=== PATIENT | male | born 1935 | race Caucasian/White ===

== ENCOUNTER 2017-04-30 15:19 | Inpatient (IN) | payer MEDICARE ==
[~2017-04-30] VITALS: Ht 177.8 cm; Wt 90.2 kg
[~2017-04-30 15:19] MED LIST: AMLO10TA2 PO; ASPI-650 PO; ATOR20TA9 PO; CLOP75TA PO; FENO160T PO; HYDR-3237 PO; LEVO175T5 PO; MULT1TAB9 PO; OMEP-110 PO; VITAMIN D PO; benicar PO; liothyronine; liothyronine PO
[2017-04-30] MEDS ORDERED: SODIUM CHLORIDE FLUSH 10ML SYR IVF ONE (16:00)
[2017-04-30 16:14] LABS: MEAN CORPUSCULAR HEMOGLOBIN 33.3 pg (27.5-34.5); PLATELET COUNT 290 x10^3/uL (130-400); RED BLOOD COUNT 5.11 x10^6/uL (4.38-5.82); RED CELL DISTRIBUTION WIDTH 12.9 % (9.4-14.8)
[2017-04-30 16:15] LABS: BASOPHILS # (AUTO) 0.04 x10^3/uL (0-0.1); BASOPHILS % (AUTO) 0 % (0-1); EOSINOPHILS # (AUTO) 0.21 x10^3/uL (0-0.4); EOSINOPHILS % (AUTO) 2 % (1-7); LYMPHOCYTES # (AUTO) 2.74 x10^3/uL (1-3.4); LYMPHOCYTES % (AUTO) 29 % (22-44); MD NO; MEAN PLATELET VOLUME 7.9 fL (7.4-10.4); MONOCYTES # (AUTO) 0.88 x10^3/uL (0.2-0.8); MONOCYTES % (AUTO) 9 % (2-9); NEUTROPHILS % (AUTO) 59 % (42-75)
[2017-04-30 16:28] LABS: ALBUMIN 3.8 g/dL (3.4-5.0); ANION GAP 6 mmol/L (5-15); CALCIUM 8.9 mg/dL (8.5-10.1); CHLORIDE 110 mmol/L (98-107); CREATININE 1.05 mg/dL (0.7-1.3)
[2017-04-30] MEDS ORDERED: NITROGLYCERIN SINGLE TAB 0.4 MG SL ONE (16:57)
[2017-04-30] MEDS ORDERED: SODIUM CHLORIDE FLUSH 10ML SYR IVF PRN (17:30)
[2017-04-30] MEDS ORDERED: ACETAMINOPHEN 325 MG TABLET PO PRN (18:00)
[2017-04-30] MEDS ORDERED: morphine SULFATE 10 MG/ML, 1ML IVPush PRN (18:00)
[2017-04-30] MEDS ORDERED: HYDROcodone/APAP 5/325 TABLET PO PRN ×2 (18:00)
[2017-04-30] MEDS ORDERED: ENOXAPARIN 40 MG/0.4 ML SQ SCH (18:00)
[2017-04-30] MEDS ORDERED: ENALAPRILAT 1.25 MG/ML, 2ML IV PRN (18:00)
[2017-04-30] MEDS ORDERED: LABETALOL 5MG/ML, 20ML IVPush PRN (18:00)
[2017-04-30] MEDS ORDERED: hydrALAzine 20 MG/ML, 1ML IV PRN (18:00)
[2017-04-30] MEDS ORDERED: ONDANSETRON 2MG/ML, 2ML IVPush PRN (18:00)
[2017-04-30] MEDS ORDERED: POLYETHYLENE GLYCOL 17 GM PACKET PO PRN (18:00)
[2017-04-30] MEDS ORDERED: DOCUSATE 100 MG CAPSULE PO PRN (18:00)
[2017-04-30 19:37] VITALS: BP 163/80
[2017-04-30] MEDS ORDERED: METOPROLOL TARTRATE 25 MG TABLET PO ONE (20:00)
[2017-04-30] MEDS ORDERED: HEPARIN 25,000 UNITS/500ML PMX 500 ML IV PRN (20:00)
[2017-04-30] MEDS ORDERED: HEPARIN 5,000 UNITS/ML, 1ML IV ONE (20:00)
[2017-04-30] MEDS ORDERED: HEPARIN 5,000 UNITS/ML, 1ML IV PRN (20:00)
[2017-04-30] MEDS ORDERED: NITROGLYCERIN 0.4 MG BOTTLE (25 TABS) SL ONE (21:23)
[2017-04-30 21:24] VITALS: BP 158/75
[2017-04-30] MEDS: NITROGLYCERIN 0.4 MG BOTTLE (25 TABS) SL PRN ×3 (21:27→21:36)
[2017-04-30 21:30] VITALS: BP 152/73
[2017-04-30] MEDS ORDERED: NITROGLYCERIN 0.4 MG/SPRAY SL PRN (21:30)
[2017-04-30 21:33] VITALS: BP 137/67
[2017-04-30 21:35] VITALS: BP 130/69
[2017-04-30 21:39] VITALS: BP 119/65
[2017-05-01] MEDS ORDERED: SODIUM CHLORIDE 0.9% 1,000 ML IV SCH (00:05)
[2017-05-01 00:13] VITALS: BP 132/76
[2017-05-01 03:23] LABS: ANION GAP 4 mmol/L (5-15); CHLORIDE 111 mmol/L (98-107)
[2017-05-01 03:29] LABS: CHOL/HDL RATIO 5.9; CHOLESTEROL, TOTAL 182 mg/dL (140-239); CREATININE 1.03 mg/dL (0.7-1.3); HDL CHOL % 17 % (26-37); HDL CHOLESTEROL (DIRECT) 31 mg/dL (40-60); LDL CHOLESTEROL,CALCULATED 108 mg/dL (54-169); LDL/HDL RATIO 3.5 (0.5-3.0); TRIGLYCERIDES 217 mg/dL (50-200); VLDL CHOLESTEROL 43 mg/dL (0-25)
[2017-05-01] MEDS ORDERED: ASPIRIN 325 MG TABLET EC PO SCH (09:00)
[2017-05-01] MEDS: SENNA/DOCUSATE TABLET PO SCH (09:00)
[2017-05-01] MEDS ORDERED: AMLODIPINE 5 MG TABLET PO SCH (09:00)
[2017-05-01 09:18] VITALS: BP 109/73
[2017-05-01] MEDS ORDERED: SODIUM CHLORIDE 0.9% 1,000 ML IV ONE (09:41)
[2017-05-01] MEDS: LEVOTHYROXINE 175 MCG TABLET PO SCH (09:55)
[2017-05-01] MEDS: ATORVASTATIN 20 MG TABLET PO SCH (09:56)
[2017-05-01] MEDS: CLOPIDOGREL 75 MG TABLET PO SCH (09:56)
[2017-05-01] MEDS: FENOFIBRATE 145 MG TABLET PO SCH (09:56)
[2017-05-01] MEDS ORDERED: bystolic (12:26)
[2017-05-01 12:32] VITALS: BP 148/71
[2017-05-01] MEDS ORDERED: FENTANYL PF 100 MCG/2ML ONE (13:17)
[2017-05-01] MEDS ORDERED: BIVALIRUDIN 250 MG ONE (13:18)
[2017-05-01] MEDS ORDERED: TICAGRELOR 90 MG TABLET ONE (13:18)
[2017-05-01] MEDS ORDERED: HEPARIN 1,000 UNITS/ML, 10ML ONE (13:18)
[2017-05-01] MEDS ORDERED: MIDAZOLAM 1 MG/ML, 2ML ONE (13:18)
[2017-05-01] MEDS ORDERED: VERAPAMIL 2.5 MG/ML, 2ML ONE (13:18)
[2017-05-01] MEDS ORDERED: LIDOCAINE 2%, 20ML ONE (13:18)
[2017-05-01 14:15] VITALS: BP 131/66
[2017-05-01] MEDS ORDERED: BIVALIRUDIN 250 MG in DEXTROSE 5% 50 ML IV SCH (14:27)
[2017-05-01] MEDS: SODIUM CHLORIDE 0.9% 1,000 ML IV SCH ×2 (14:45→22:44)
[2017-05-01 19:50] VITALS: BP 133/59
[2017-05-02 01:08] VITALS: BP 149/56
[2017-05-02 06:29] LABS: ALBUMIN 3.4 g/dL (3.4-5.0); ANION GAP 7 mmol/L (5-15); CHLORIDE 110 mmol/L (98-107); CREATININE 0.79 mg/dL (0.7-1.3)
[2017-05-02] MEDS: SODIUM CHLORIDE 0.9% 1,000 ML IV SCH (07:00)
[2017-05-02 07:41] VITALS: BP 145/69
[2017-05-02] MEDS ORDERED: CARVEDILOL 3.125 MG TABLET PO SCH (08:30)
[2017-05-02] MEDS: SENNA/DOCUSATE TABLET PO SCH (09:00)
[2017-05-02] MEDS ORDERED: AMLODIPINE 5 MG TABLET PO SCH (09:00)
[2017-05-02] MEDS ORDERED: CARV3.1212 PO (09:21)
[2017-05-02] MEDS ORDERED: AMLO5TAB2 PO (09:21)
[2017-05-02] MEDS ORDERED: ASPIRIN 81 MG TABLET CHEW ONE (10:16)
[2017-05-02] MEDS ORDERED: ASPIRIN 81 MG TABLET EC ONE (10:17)
[2017-05-02] MEDS: FENOFIBRATE 145 MG TABLET PO SCH (10:19)
[2017-05-02] MEDS: LEVOTHYROXINE 175 MCG TABLET PO SCH (10:19)
[2017-05-02] MEDS: CLOPIDOGREL 75 MG TABLET PO SCH (10:19)
[2017-05-02] MEDS: ATORVASTATIN 20 MG TABLET PO SCH (10:19)
[2017-05-02 11:38] VITALS: BP 150/83
[2017-05-03] MEDS ORDERED: ASPIRIN 81 MG TABLET EC PO SCH (06:00)
== END 2017-05-02 12:40 | disposition home or self-care (01) | DRG 246 ==
LOC: ED 17:19 → EDIP 17:20 → SUATTDRO 17:29 → ED 17:45 → 5SO 19:38 → DCLOUNGE 05-02 12:35
PROVIDERS: ADMIT Family Medicine; ATTEND Family Medicine
PROC: 027035Z Dilation of Coronary Artery, One Artery with Two Drug-eluting Intraluminal Devices, Percutaneous Approach (ICD-10-PCS; principal; 2017-05-01)
PROC: 4A023N7 Measurement of Cardiac Sampling and Pressure, Left Heart, Percutaneous Approach (ICD-10-PCS; 2017-05-01)
PROC: B2111ZZ Fluoroscopy of Multiple Coronary Arteries using Low Osmolar Contrast (ICD-10-PCS; 2017-05-01)
PROC: B2151ZZ Fluoroscopy of Left Heart using Low Osmolar Contrast (ICD-10-PCS; 2017-05-01)
DX: I21.4 Non-ST elevation (NSTEMI) myocardial infarction (principal); J96.20 Acute and chronic respiratory failure, unspecified whether with hypoxia or hypercapnia; I16.1 Hypertensive emergency; E03.9 Hypothyroidism, unspecified; K21.9 Gastro-esophageal reflux disease without esophagitis; E78.5 Hyperlipidemia, unspecified; I10 Essential (primary) hypertension; I25.10 Atherosclerotic heart disease of native coronary artery without angina pectoris; I44.30 Unspecified atrioventricular block; Z66 Do not resuscitate; Z79.82 Long term (current) use of aspirin; Z79.899 Other long term (current) drug therapy; Z82.5 Family history of asthma and other chronic lower respiratory diseases; Z87.891 Personal history of nicotine dependence; Z95.0 Presence of cardiac pacemaker; Z79.02 Long term (current) use of antithrombotics/antiplatelets
CPT/HCPCS: 36415; 71046; 80048; 80061; 82040; 84484; 85014; 85018; 85025; 85520; 93005; 93306; 93458; 96374; 99156; 99157; C1769; C1894; C9600; J0583; J1644; J2250; J3010; J3490; C1725; C1874; C1887; J7030; Q9967

== ENCOUNTER 2017-10-12 21:22 | Inpatient (IN) | payer MEDICARE ==
[~2017-10-12] VITALS: Ht 177.8 cm; Wt 77.6 kg
[~2017-10-12 21:22] MED LIST changes: +AMLO5TAB2 PO; +CARV3.1212 PO; +bystolic
[2017-10-12] MEDS ORDERED: NEBI5TAB2 PO (22:06)
[2017-10-12] MEDS ORDERED: LIOTHYRONINE PO (22:06)
[2017-10-12 22:15] LABS: BASOPHILS # (AUTO) 0.03 x10^3/uL (0-0.1); BASOPHILS % (AUTO) 0 % (0-1); EOSINOPHILS # (AUTO) 0.29 x10^3/uL (0-0.4); EOSINOPHILS % (AUTO) 3 % (1-7); LYMPHOCYTES # (AUTO) 3.23 x10^3/uL (1-3.4); LYMPHOCYTES % (AUTO) 36 % (22-44); MD NO; MEAN CORPUSCULAR HEMOGLOBIN 32.7 pg (27.5-34.5); MEAN CORPUSCULAR VOLUME 96.1 fL (81-97); MEAN PLATELET VOLUME 7.8 fL (7.4-10.4); MONOCYTES # (AUTO) 0.93 x10^3/uL (0.2-0.8); MONOCYTES % (AUTO) 10 % (2-9); NEUTROPHILS # (AUTO) 4.46 x10^3/uL (1.8-6.8); NEUTROPHILS % (AUTO) 50 % (42-75); PLATELET COUNT 298 x10^3/uL (130-400); RED BLOOD COUNT 5.02 x10^6/uL (4.38-5.82); RED CELL DISTRIBUTION WIDTH 13.1 % (9.4-14.8)
[2017-10-12 22:27] LABS: ALBUMIN 3.8 g/dL (3.4-5.0); ANION GAP 4 mmol/L (5-15); CALCIUM 9.3 mg/dL (8.5-10.1); CHLORIDE 111 mmol/L (98-107); CREATININE 1.47 mg/dL (0.7-1.3)
[2017-10-12 22:31] LABS: TROPONIN I < 0.015 ng/mL (0.000-0.045)
[2017-10-12 23:18] LABS: FREE T4 (FREE THYROXINE) 1.15 ng/dL (0.76-1.46); THYROID STIMULATING HORMONE 0.338 mIU/L (0.358-3.740)
[2017-10-12] MEDS ORDERED: hydrALAzine 20 MG/ML, 1ML ONE (23:34)
[2017-10-12] MEDS ORDERED: SODIUM CHLORIDE 0.9% 1,000 ML IV SCH (23:55)
[2017-10-13] VITALS (9 sets, daily range): BP systolic 123–209; BP diastolic 54–83
[2017-10-13] MEDS ORDERED: ONDANSETRON 2MG/ML, 2ML IVPush PRN
[2017-10-13] MEDS ORDERED: BISACODYL 10 MG SUPP PR PRN
[2017-10-13] MEDS ORDERED: ACETAMINOPHEN 325 MG TABLET PO PRN
[2017-10-13] MEDS ORDERED: DOCUSATE 100 MG CAPSULE PO PRN
[2017-10-13] MEDS ORDERED: hydrALAzine 20 MG/ML, 1ML IV ONE
[2017-10-13] MEDS ORDERED: POLYETHYLENE GLYCOL 17 GM PACKET PO PRN
[2017-10-13] MEDS: hydrALAzine 20 MG/ML, 1ML IVPush PRN ×3 (00:58→18:18)
[2017-10-13] MEDS: HEPARIN 5,000 UNITS/ML, 1ML SQ SCH ×3 (00:58→16:08)
[2017-10-13 01:29] LABS: MICROSCOPIC NOT IND
[2017-10-13 01:33] LABS: CULTURE INDICATED? NO
[2017-10-13 01:36] LABS: CHLORIDE,URINE RANDOM 171 mmol/L; POTASSIUM,URINE RANDOM 30 mmol/L; SODIUM,URINE RANDOM 167 mmol/L
[2017-10-13 04:35] LABS: BASOPHILS # (AUTO) 0.04 x10^3/uL (0-0.1); BASOPHILS % (AUTO) 0 % (0-1); EOSINOPHILS % (AUTO) 3 % (1-7); LYMPHOCYTES # (AUTO) 2.76 x10^3/uL (1-3.4); LYMPHOCYTES % (AUTO) 28 % (22-44); MD NO; MEAN CORPUSCULAR HEMOGLOBIN 32.7 pg (27.5-34.5); MEAN CORPUSCULAR HGB CONC 34.4 g/dL (33.2-36.2); MEAN CORPUSCULAR VOLUME 94.9 fL (81-97); MEAN PLATELET VOLUME 8.1 fL (7.4-10.4); MONOCYTES # (AUTO) 1.11 x10^3/uL (0.2-0.8); MONOCYTES % (AUTO) 11 % (2-9); NEUTROPHILS # (AUTO) 5.81 x10^3/uL (1.8-6.8); NEUTROPHILS % (AUTO) 58 % (42-75); PLATELET COUNT 272 x10^3/uL (130-400); RED BLOOD COUNT 4.99 x10^6/uL (4.38-5.82); RED CELL DISTRIBUTION WIDTH 13.2 % (9.4-14.8)
[2017-10-13 04:48] LABS: ANION GAP 11 mmol/L (5-15); CALCIUM 8.7 mg/dL (8.5-10.1); CHLORIDE 111 mmol/L (98-107); CREATININE 1.28 mg/dL (0.7-1.3)
[2017-10-13 05:01] LABS: TROPONIN I < 0.015 ng/mL (0.000-0.045)
[2017-10-13] MEDS: LOSARTAN 50MG TABLET PO SCH (08:02)
[2017-10-13] MEDS: FENOFIBRATE 145 MG TABLET PO SCH (08:02)
[2017-10-13] MEDS: LEVOTHYROXINE 175 MCG TABLET PO SCH (08:02)
[2017-10-13] MEDS: CLOPIDOGREL 75 MG TABLET PO SCH (08:02)
[2017-10-13] MEDS: ATORVASTATIN 20 MG TABLET PO SCH (08:02)
[2017-10-13] MEDS: NEBIVOLOL HCL 5 MG TABLET PO SCH (08:03)
[2017-10-13] MEDS ORDERED: ASPIRIN 325 MG TABLET EC PO SCH (09:00)
[2017-10-13] MEDS ORDERED: AMLODIPINE 5 MG TABLET PO SCH (09:00)
[2017-10-13] MEDS ORDERED: AMLODIPINE 5 MG TABLET PO ONE (15:00)
[2017-10-14 00:15] VITALS: BP 164/69
[2017-10-14] MEDS: HEPARIN 5,000 UNITS/ML, 1ML SQ SCH ×3 (00:19→16:00)
[2017-10-14 04:27] VITALS: BP 154/72
[2017-10-14 08:00] VITALS: BP 152/78
[2017-10-14] MEDS: NEBIVOLOL HCL 5 MG TABLET PO SCH (08:52)
[2017-10-14] MEDS: LOSARTAN 50MG TABLET PO SCH (08:53)
[2017-10-14] MEDS: CLOPIDOGREL 75 MG TABLET PO SCH (08:53)
[2017-10-14] MEDS: LEVOTHYROXINE 175 MCG TABLET PO SCH (08:53)
[2017-10-14] MEDS: FENOFIBRATE 145 MG TABLET PO SCH (08:54)
[2017-10-14] MEDS: ATORVASTATIN 20 MG TABLET PO SCH (08:54)
[2017-10-14] MEDS ORDERED: TAMSULOSIN 0.4 MG CAP.ER.24H PO SCH (09:00)
[2017-10-14] MEDS ORDERED: AMLODIPINE 5 MG TABLET PO SCH (09:00)
[2017-10-14 12:17] VITALS: BP 165/75
[2017-10-14] MEDS ORDERED: LISINOPRIL 5 MG TABLET PO SCH (13:00)
[2017-10-14 14:12] VITALS: BP 150/65
[2017-10-14] MEDS ORDERED: AMLO5TAB2 PO (14:57)
[2017-10-14] MEDS ORDERED: LISI5TAB7 PO (14:57)
[2017-10-14] MEDS ORDERED: LOSA50TA2 PO (15:02)
[2017-10-14 16:42] VITALS: BP 124/67
== END 2017-10-14 18:06 | disposition home or self-care (01) | DRG 304 ==
LOC: ED 23:56 → EDIP 23:57 → 4EST 10-13 00:11
PROVIDERS: ADMIT Internal Medicine; ATTEND Internal Medicine
DX: I16.0 Hypertensive urgency (principal); N17.0 Acute kidney failure with tubular necrosis; I11.9 Hypertensive heart disease without heart failure; E78.5 Hyperlipidemia, unspecified; I25.10 Atherosclerotic heart disease of native coronary artery without angina pectoris; F17.210 Nicotine dependence, cigarettes, uncomplicated; E03.9 Hypothyroidism, unspecified; E78.00 Pure hypercholesterolemia, unspecified; F12.90 Cannabis use, unspecified, uncomplicated; H53.9 Unspecified visual disturbance; R33.9 Retention of urine, unspecified; Z66 Do not resuscitate; Z82.49 Family history of ischemic heart disease and other diseases of the circulatory system; Z95.0 Presence of cardiac pacemaker; Z95.5 Presence of coronary angioplasty implant and graft; Z79.82 Long term (current) use of aspirin; I25.2 Old myocardial infarction; Z79.899 Other long term (current) drug therapy; Z79.02 Long term (current) use of antithrombotics/antiplatelets
CPT/HCPCS: 36415; 70450; 71045; 76770; 80048; 81003; 81050; 82040; 82436; 82570; 84133; 84300; 84439; 84443; 84484; 85025; 93005; 93306; 96374; J1644; J0360; J7030

== ENCOUNTER 2018-01-29 15:19 | Emergency (ER) | payer MEDICARE ==
[~2018-01-29] VITALS: Ht 177.8 cm; Wt 84.2 kg
[~2018-01-29 15:19] MED LIST changes: -AMLO10TA2 PO; +AMLO10TA6 PO; -AMLO5TAB2 PO; +AMLO5TAB7 PO; +LIOTHYRONINE PO; +LISI5TAB7 PO; +LOSA50TA2 PO; +NEBI5TAB3 PO
[2018-01-29 17:33] LABS: TROPONIN I < 0.015 ng/mL (0.000-0.045)
[2018-01-29] MEDS ORDERED: LIOT5TAB3 PO (17:38)
[2018-01-29] MEDS ORDERED: SPIR25TA5 PO (17:38)
[2018-01-29] MEDS ORDERED: OLME40TA12 PO (17:38)
[2018-01-29] MEDS ORDERED: SODIUM CHLORIDE 0.9% 1,000ML IVBOLUS ONE (18:00)
[2018-01-29 18:58] LABS: MICROSCOPIC NOT IND
[2018-01-29 19:06] LABS: CULTURE INDICATED? NO
[2018-01-29 19:38] VITALS: BP 151/73
== END 2018-01-29 19:49 | disposition home or self-care (01) ==
LOC: ED 19:24
DX: I10 Essential (primary) hypertension (principal); R53.1 Weakness
CPT/HCPCS: 36415; 81003; 84484; 93005; 99285; J7030